=== PATIENT | female | born 1960 | race Caucasian/White ===

== ENCOUNTER 2020-08-02 14:00 | Outpatient (CLI) | payer MEDICARE, OTHER | END 2020-08-02 23:59 | disposition home health service (06) | LOC: WOU 14:00 | PROVIDERS: ATTEND Surgery | DX: L03.114 Cellulitis of left upper limb (principal); M71.312 Other bursal cyst, left shoulder; I10 Essential (primary) hypertension; F41.1 Generalized anxiety disorder; E66.9 Obesity, unspecified; Z68.29 Body mass index [BMI] 29.0-29.9, adult | CPT/HCPCS: 11042; A6407 ==

== ENCOUNTER 2020-08-09 14:00 | Outpatient (CLI) | payer MEDICARE, OTHER | END 2020-08-09 23:59 | disposition home health service (06) | LOC: WOU 14:00 | PROVIDERS: ATTEND Surgery | DX: L03.114 Cellulitis of left upper limb (principal); M71.312 Other bursal cyst, left shoulder; I10 Essential (primary) hypertension; F41.1 Generalized anxiety disorder; E66.9 Obesity, unspecified; Z68.29 Body mass index [BMI] 29.0-29.9, adult | CPT/HCPCS: 11042; A6407 ==

== ENCOUNTER 2020-08-23 14:15 | Outpatient (CLI) | payer MEDICARE, OTHER | END 2020-08-23 23:59 | disposition home health service (06) | LOC: WOU 14:15 | PROVIDERS: ATTEND Surgery | DX: L03.114 Cellulitis of left upper limb (principal); M71.312 Other bursal cyst, left shoulder; I10 Essential (primary) hypertension; F41.1 Generalized anxiety disorder; Z79.82 Long term (current) use of aspirin | CPT/HCPCS: 11042; A6407 ×2 ==

== ENCOUNTER 2020-09-06 13:55 | Outpatient (CLI) | payer MEDICARE, OTHER ==
[2020-09-06] MEDS ORDERED: LIDOCAINE SOLN 4% 50 ML BOTTLE ONE (14:41)
[2020-09-06] MEDS ORDERED: MUPIROCIN 2% CREAM 15 GM TUBE TP ONE (15:17)
== END 2020-09-06 23:59 | disposition home or self-care (01) ==
LOC: WOU 13:55
PROVIDERS: ATTEND Surgery
DX: L02.414 Cutaneous abscess of left upper limb (principal); L03.114 Cellulitis of left upper limb; M71.312 Other bursal cyst, left shoulder; I10 Essential (primary) hypertension; F41.1 Generalized anxiety disorder
CPT/HCPCS: 10060

== ENCOUNTER 2020-09-14 14:30 | Outpatient (CLI) | payer MEDICARE, OTHER | END 2020-09-14 23:59 | disposition home health service (06) | LOC: WOU 14:30 | PROVIDERS: ATTEND Surgery | DX: Z09 Encounter for follow-up examination after completed treatment for conditions other than malignant neoplasm (principal); Z87.2 Personal history of diseases of the skin and subcutaneous tissue; I10 Essential (primary) hypertension; F41.1 Generalized anxiety disorder; Z79.82 Long term (current) use of aspirin | CPT/HCPCS: G0463 ==